=== PATIENT | male | born 1985 | race Caucasian/White ===

== ENCOUNTER 2022-03-02 09:14 | Emergency (ER) | payer BC ==
[2022-03-02] MEDS ORDERED: ONDANSETRON ODT 4 MG TABLET TL STA (09:31)
--- OUTSIDE RECORDS SUMMARY | 2022-03-02 09:39 | EXTERNAL MEDICAL SUMMARY RPT | Continuity of Care Document ---
:1985 Author Organization [facility] Address [address] [place] [address] Phone Care Team Providers Name Role Phone Unavailable Unavailable Unavailable Ray Johnson, Jerad Unavailable Unavailable Maxine Mora, Angela Unavailable Unavailable Maxine Mora, Angela Unavailable Unavailable Allergies No information. Encounters No information. Functional Status No information. Immunizations No information. Medications date description facility [id number] No Known Medications [facility] [id number] No Known Medications [facility] [id number]+0000 No Known Medications [facility] Problems No information. Procedures date description facility [id number] Visit Code Hold [facility] [phone] Visit [facility] [id number]+0000 Visit [facility] Results/Labs No information. Social History date description facility [id number] Never smoker [facility] [phone] Never smoker [facility] [id number]+0000 Never smoker [facility] Vital Signs date measurement value units [id number] BMI BMI 23.10 kg/m2 [id number]+0000 BP_diastolic BP_diastolic 79 mmHg [id number]+0000 BP_systolic BP_systolic 140 mmHg [id number]+0000 heart_rate heart_rate 113 /min [id number]+0000 height_metric height_metric 180.34 cm [id number]+0000 height_standard height_standard 71 in [id number]+0000 respiration_rate respiration_rate 16 /min [id number]+0000 temperature_metric temperature_metric 36.44 C [id number]+0000 temperature_standard temperature_standard 9 7.6 F [id number]+0000 weight_metric weight_metric 74.84 kg +0000 weight_standard weight_standard 165 lb
[2022-03-02 09:52] LABS: BASOPHILS % (AUTO) 0.5 %; EOSINOPHILS % (AUTO) 0.6 %; HCT - HEMATOCRIT 42.6 % (42.0-52.0); HGB - HEMOGLOBIN 14.6 g/dL (14.0-18.0); LYMPHOCYTES # (AUTO) 1.4 10^3/uL (1.5-3.5); LYMPHOCYTES % (AUTO) 20.6 %; MEAN CORPUSCULAR HEMOGLOBIN 31.3 pg (27.0-31.0); MEAN CORPUSCULAR HGB CONC 34.3 g/dL (32.0-36.0); MEAN CORPUSCULAR VOLUME 91.2 fL (80.0-94.0); MEAN PLATELET VOLUME 9.7 fL (7.4-11.4); MONOCYTES # (AUTO) 0.5 10^3/uL (0.0-1.0); MONOCYTES % (AUTO) 7.4 %; NEUTROPHILS # (AUTO) 4.7 10^3/uL (1.5-6.6); NEUTROPHILS % (AUTO) 70.6 %; PLT - PLATELET COUNT 317 10^3/uL (130-450); RED BLOOD COUNT 4.67 10^6/uL (4.70-6.10); RED CELL DISTRIBUTION WIDTH 12.8 % (12.0-15.0); WHITE BLOOD COUNT 6.7 x10^3/uL (4.8-10.8)
[2022-03-02] MEDS ORDERED: SODIUM CHLORIDE 0.9% 1,000 ML IV STA ×2 (10:04→11:41)
[2022-03-02 10:05] LABS: ALBUMIN 4.8 g/dL (3.2-5.5); ALBUMIN/GLOBULIN RATIO 1.7 (1.0-2.2); BILIRUBIN,TOTAL 0.4 mg/dL (0.2-1.0); CALCIUM 9.1 mg/dL (8.5-10.3); CREATININE 0.9 mg/dL (0.6-1.2); POTASSIUM 3.8 mmol/L (3.5-5.0); TOTAL PROTEIN 7.6 g/dL (6.7-8.2)
[2022-03-02] MEDS ORDERED: diphenhydrAMINE INJ 50 MG/ML VIAL IVP STA (10:05)
[2022-03-02] MEDS ORDERED: PROCHLORPERAZINE 10 MG/2 ML VIAL IVP STA (10:05)
--- NOTE | 2022-03-02 10:08 | ED Physician Documentation ---
PD HPI NVD - Stated complaint Stated Complaint: ABD PX,VOMITING - Chief complaint Chief Complaint: Abd Pain - History obtained from History obtained from: Patient - History of Present Illness Timing - onset: Enter time (1999), Yesterday Timing - duration: Hours (24) Timing - details: Abrupt onset, Still present Associated symptoms: Abdominal pain. No: Fever, Melena, Hematochezia Contributing factors: Bad food (likely left overs) Improved by: Vomiting Similar symptoms before: Diagnosis (food poisoning) Recently seen: Not recently seen - Additonal information Additional information: 37-year-old Tu Duke has developed acute nausea vomiting and abdominal pain beginning about 8 PM yesterday. His symptoms began with vomiting and eventually he developed epigastric abdominal pain. He has had this happen to him once previously several years ago and does not have a recurrent pattern. He denies cannabis use. Review of Systems Constitutional: denies: Fever Eyes: denies: Decreased vision Ears: denies: Ear pain Nose: denies: Congestion Throat: denies: Sore throat Cardiac: denies: Chest pain / pressure, Palpitations Respiratory: denies: Dyspnea, Cough GI: reports: Abdominal Pain, Nausea, Vomiting : denies: Dysuria, Frequency Skin: denies: Rash Musculoskeletal: denies: Neck pain, Back pain, Extremity pain Neurologic: denies: Generalized weakness, Focal weakness, Numbness PD PAST MEDICAL HISTORY - Past Medical History Past Medical History: Yes Psych: ADD/ADHD - Past Surgical History Past Surgical History: No - Present Medications Home Medications: Ambulatory Orders Medication Instructions Recorded Confirmed Dextroamphetamine/Amphetamine 10 mg PO 03/02/22 [Dextroamp-Amphetamine 5 mg Tab] Lisdexamfetamine Dimesylate 70 mg PO DAILY 03/02/22 03/02/22 [Vyvanse] Ondansetron Odt [Zofran] 4 mg TL Q6H PRN #10 tablet 03/02/22 - Allergies Allergies/Adverse Reactions: Allergies Allergy/AdvReac Type Severity Reaction Status Date / Time No Known Drug Allergies Allergy Verified 03/02/22 09:24 - Social History Does the pt smoke?: No Smoking Status: Never smoker Does the pt drink ETOH?: Yes Does the pt have substance abuse?: No - POLST Patient has POLST: No PD ED PE NORMAL - Vitals Vital signs reviewed: Yes (Minimal Hypertension with wide pulse pressure) - General General: Alert and oriented X 3, Well developed/nourished, Other (Diaphoretic and 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.) - HEENT HEENT: Atraumatic, PERRL, EOMI - Neck Neck: Supple, no meningeal sign, No bony TTP - Cardiac Cardiac: RRR, No murmur - Respiratory Respiratory: No respiratory distress, Clear bilaterally - Abdomen Abdomen: Normal bowel sounds, Soft, Non distended, No organomegaly, Other (mild epigastric tenderness) - Back Back: No CVA TTP, No spinal TTP - Derm Derm: Normal color, Warm and dry, No rash - Extremities Extremities: No deformity, No edema - Neuro Neuro: Alert and oriented X 3, 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, No motor deficit, No sensory deficit Eye Opening: Spontaneous Motor: Obeys Commands Verbal: Oriented GCS Score: 15 - Psych Psych: Normal mood, Normal affect Results - Vitals Vitals: Vital Signs - 24 hr 03/02/22 03/02/22 09:22 13:17 Temperature 36.0 C L Heart Rate 78 67 Respiratory 18 18 Rate Blood Pressure 133/63 H 138/96 H O2 Saturation 99 100 Oxygen O2 Source Room air - Labs Labs: Laboratory Tests 03/02/22 03/02/22 09:47 09:47 WBC 6.7 RBC 4.67 L Hgb 14.6 Hct 42.6 MCV 91.2 MCH 31.3 H MCHC 34.3 RDW 12.8 Plt Count 317 MPV 9.7 Neut # (Auto) 4.7 Lymph # (Auto) 1.4 L [place] # (Auto) 0.5 Eos # (Auto) 0.0 Baso # (Auto) 0.0 Absolute Nucleated RBC 0.00 Nucleated RBC % 0.0 Sodium 140 Potassium 3.8 Chloride 101 Carbon Dioxide 29 Anion Gap 10.0 BUN 17 Creatinine 0.9 Estimated GFR (MDRD) 96 Glucose 115 H Calcium 9.1 Total Bilirubin 0.4 AST 22 ALT 23 Alkaline Phosphatase 48 Total Protein 7.6 Albumin 4.8 Globulin 2.8 Albumin/Globulin Ratio 1.7 Lipase 39 PD MEDICAL DECISION MAKING - ED course Complexity details: reviewed old records, reviewed results, re-evaluated patient, considered differential, d/w patient ED course: 37-year-old male with acute nausea and vomiting with epigastric abdominal pain has improvement with use of intravenous saline and antiemetic. He did not really respond much to Zofran and was less administered Compazine and Benadryl and continue to vomit. We did administer 2 mg of Haldol and eventually the patient stopped vomiting. He is insistent that he does not use cannabis. I discussed with him gastroenteritis versus food poisoning versus cyclical vomiting. After a second liter of fluid patient was markedly improved and was discharged. Departure - Departure Disposition: 01 Home, Self Care Clinical Impression: Gastroenteritis Condition: Stable Instructions: ED Gastroenteritis Vs Food Poison Follow-Up: Lori Marie ARNP [Credentialed Staff Provider] - Prescriptions: Ondansetron Odt [Zofran] 4 mg TL Q6H PRN #10 tablet PRN Reason: Nausea / Vomiting Comments: Tu, today it looks like you have food poisoning and we have provided some intravenous fluid and something for nausea for you. Our expectation is improvement from your current status. Over the next 1 to 3 days. I have E scribed some Zofran for you to the [facility] in [place]. I have given you a number for a doctor in [place] for follow-up if necessary. Discharge Date/Time: 03/02/22 13:30
[2022-03-02] MEDS ORDERED: HALOPERIDOL 5 MG/ML VIAL IVP STA (10:39)
[2022-03-02 13:18] VITALS: BP 138/96
== END 2022-03-02 13:30 | disposition home or self-care (01) ==
LOC: ED 09:14
DX: K52.9 Noninfective gastroenteritis and colitis, unspecified (principal)
CPT/HCPCS: 36415; 80053; 83690; 85025; 96361; 96374; 96375; 99282; 99284; J1200; Q0162